=== PATIENT | male | born 1970 | race Caucasian/White ===

== ENCOUNTER 2020-08-16 14:21 | Observation (INO) ==
[2020-08-16 14:45] LABS: Basophils % 0.5 % (0.0-0.8); Eosinophils # 0.1 10*3/uL (0.0-0.87); Hematocrit 44.1 VOL% (42.0-52.0); Hemoglobin 15.6 GM/DL (14.0-18.0); Immature Granulocytes % 0.2 %; Immature Granulocytes Absolute 0.01 #; Lymphocytes # 2.2 10*3/uL (1.4-4.0); Lymphocytes % 37.2 % (21.2-54.2); Mean Corpuscular HGB Conc 35.4 GM/DL (32-36); Mean Corpuscular Volume 91.1 FL (87-102); Mean Platelet Volume 9.3 FL (9.6-12.0); Monocytes % 7.1 % (1.7-12.7); Platelet Count 161 T/CUMM (130-400); Red Blood Count 4.84 MC/CUMM (3.8-5.5); White Blood Count 5.9 T/CUMM (4-12)
[2020-08-16 15:08] LABS: Albumin 4.1 G/DL (3.4-5.0); Bilirubin,Total 0.6 MG/DL (0.2-1.0); Calcium 8.6 MG/DL (8.5-10.1); Osmolality,Calculated 281.4 MOS/KG (273-304); Potassium 3.6 MMOL/L (3.5-5.1); Total Protein 7.4 G/DL (5.0-7.5)
[2020-08-16] MEDS ORDERED: ACETAMINOPHEN 325 MG TABLET PO PRN (17:23)
[2020-08-16] MEDS ORDERED: MORPHINE 4 MG/1 ML VIAL IV PRN (17:23)
[2020-08-16] MEDS ORDERED: NITROGLYCERIN SL 0.4 MG TABLET SL PRN (17:23)
[2020-08-16] MEDS ORDERED: ONDANSETRON 4 MG/2 ML VIAL IV PRN (17:23)
[2020-08-16 19:05] LABS: Troponin I < 0.015 NG/ML (0.00-0.045)
[2020-08-16] MEDS ORDERED: ASPIRIN CHEW 81 MG TABLET PO ONE (19:24)
[2020-08-16] MEDS: ENOXAPARIN 40 MG/0.4 ML SYRINGE SUBCUT SCH (21:38)
[2020-08-16] MEDS: DOCUSATE SODIUM 100 MG CAPSULE PO SCH (21:38)
[2020-08-16 22:04] LABS: Troponin I < 0.015 NG/ML (0.00-0.045)
[2020-08-17 00:09] LABS: Troponin I < 0.015 NG/ML (0.00-0.045)
[2020-08-17 06:20] LABS: Basophils % 0.5 % (0.0-0.8); Eosinophils # 0.2 10*3/uL (0.0-0.87); Eosinophils % 2.9 % (0.00-10.9); Hematocrit 43.1 VOL% (42.0-52.0); Hemoglobin 15.6 GM/DL (14.0-18.0); Lymphocytes # 2.3 10*3/uL (1.4-4.0); Lymphocytes % 36.8 % (21.2-54.2); Mean Corpuscular HGB Conc 36.2 GM/DL (32-36); Mean Corpuscular Volume 90.5 FL (87-102); Mean Platelet Volume 9.3 FL (9.6-12.0); Monocytes % 9.8 % (1.7-12.7); Platelet Count 153 T/CUMM (130-400); Red Blood Count 4.76 MC/CUMM (3.8-5.5); Red Cell Distribution Width 12.1 % (9.3-17.3); White Blood Count 6.2 T/CUMM (4-12)
[2020-08-17 06:48] LABS: Osmolality,Calculated 274.7 MOS/KG (273-304); Potassium 3.7 MMOL/L (3.5-5.1)
[2020-08-17 06:50] LABS: Risk Ratio 6.13; VLDL CHOLESTEROL 29.2 MG/DL
[2020-08-17] MEDS: DOCUSATE SODIUM 100 MG CAPSULE PO SCH (08:52)
[2020-08-17] MEDS: ENOXAPARIN 40 MG/0.4 ML SYRINGE SUBCUT SCH (08:53)
[2020-08-17] MEDS ORDERED: ASPIRIN CHEW 81 MG TABLET PO SCH (09:00)
[2020-08-17] MEDS ORDERED: PANTOPRAZOLE 40 MG TABLET PO SCH (09:00)
[2020-08-17 11:52] VITALS: BP 116/77
[2020-08-18] MEDS ORDERED: ASPIRIN EC 81 MG TABLET PO SCH (09:00)
== END 2020-08-17 12:29 | disposition home or self-care (01) ==
LOC: N.EDINP 14:21 → N.ED 14:21 → N.TELEN 16:57
PROVIDERS: ADMIT Family Medicine; ATTEND Family Medicine